=== PATIENT | female | born 1965 | race Caucasian/White ===

== ENCOUNTER 2019-12-15 20:41 | Emergency (ER) | payer BC ==
[~2019-12-15] VITALS: Ht 149.9 cm; Wt 65.3 kg
[~2019-12-15 20:41] MED LIST: ALPR1TAB2 PO; ALPR1TAB6 PO; AMLO10TA4 PO; ASPI-484 PO; ATOR40TA PO; BISO5TAB8 PO; CLOP75TA52 PO; DOCU-123 PO; DULO20CA18 PO; ESCI10TA10 PO; ESCI20TA PO; GABA100C7 PO; HYDR-3468 PO; LORA1TAB PO; METO-236 PO; METO-237 PO; PANT40TA5 PO; PRAS10TA4 PO; RANO500T2 PO; ROSU10TA2 PO; ROSU40TA PO; TICA90TA PO; ZOLP10TA PO; ZOLP12.52 PO; ZOLP12.54 PO
[2019-12-15 20:49] VITALS: BP 109/83
--- NOTE | 2019-12-15 20:49 | NUR ---
ARRIVAL PATIENT PRESENTS WITH COMPLAINTS OF N/V/D, FEVER/CHILLS THAT STARTED TODAY. PATIENT REPORTS THAT OTHER FAMILY MEMBERS HAVE HAD SAME TODAY. AFEBRILE. HR 130. FRANCO, NOTIFIED.
[2019-12-15] MEDS ORDERED: NS 1000ML 1,000 ML STA (21:09)
[2019-12-15] MEDS ORDERED: ZOFRAN IV STA (21:09)
--- NOTE | 2019-12-15 21:11 | ER.PDOC ---
General Chief Complaint: Requesting Medical Care Stated Complaint: FLU SYMPTOMS Time seen by MD: 21:04 Source: patient Exam Limitations: no limitations History of Present Illness Initial Comments pt c/o n/v/d x today; + chills/body aches; denies cough or URI sx Timing/Duration: gradual, this morning Severity: moderate Allergies: Coded Allergies: No Known Allergies (Unverified , 11/13/18) Home Meds Active Scripts Ticagrelor (BRILINTA) 90 Mg Tablet, 90 MG PO BID for 365 Days, #180 TABLET 12 Refills Prov:SHAYY GONZALEZ MD 04/26/18 Reported Medications Zolpidem Tartrate (AMBIEN CR) 12.5 Mg Tab.mphase, 1 TAB PO HS, #30 TAB 1 Refill 12/10/19 Gabapentin (GABAPENTIN) 100 Mg Capsule, 2 CAP PO HS, #90 CAP 2 Refills 12/10/19 Escitalopram Oxalate (ESCITALOPRAM OXALATE) 20 Mg Tablet, 1 TAB PO DAILY, #30 TAB 5 Refills 12/10/19 Alprazolam (ALPRAZOLAM) 1 Mg Tablet, 1 TAB PO BID PRN for ANXIETY, #60 TAB 12/10/19 Rosuvastatin 40MG (CRESTOR 40MG) 40 Mg Tablet, 1 TAB PO HS, #30 TAB 5 Refills 11/13/18 Metoprolol Succinate (METOPROLOL SUCCINATE) 50 Mg Tab.er.24h, 50 MG PO ACL 12/29/16 Aspirin (ASPIR 81) 81 Mg Tablet.dr, 1 TAB PO DAILY, #30 TAB 5 Refills 11/18/16 Pantoprazole Sodium (PANTOPRAZOLE SODIUM) 40 Mg Tablet.dr, 1 TAB PO DAILY, #30 TAB 3 Refills 11/18/16 Discontinued Reported Medications Lorazepam (LORAZEPAM) 1 Mg Tablet, 1 TAB PO BID PRN for ANXIETY, #60 TAB 11/13/18 Escitalopram Oxalate (LEXAPRO) 10 Mg Tablet, 1 TAB PO DAILY, #90 TAB 3 Refills 12/13/17 Constitutional: malaise, other (body aches) EENTM: no symptoms reported Respiratory: no symptoms reported Cardiovascular: no symptoms reported Gastrointestinal: diarrhea, nausea, vomiting Genitourinary: no symptoms reported Musculoskeletal: see HPI (body aches) Skin: no symptoms reported Psychiatric/Neurological: no symptoms reported Past Medical History Medical History: other (bowel obstruction x 2, relieved with NGT) Surgical History: appendectomy, cholecystectomy, hysterectomy, stent Social History Drug Use: none Physical Exam General Appearance: alert, mild distress (appears acutely uncomfortable) Respiratory: no resp.distress, breath sounds nml Abdomen: non-tender, other (hypoactive BS x 4) CVS: heart sounds nml, tachycardia Skin: warm/dry Extremities: non-tender, no pedal edema NEURO/PSYCH: oriented x 3, motor nml, mood/affect nml Results/Orders Results/Orders Orders - NEGAR FRANCO DO Influenza A&B (12/15/19 20:53) Strep Screen (12/15/19 20:53) Cbc With Auto Diff (12/15/19 21:09) Comprehensive Metabolic Panel (12/15/19 21:) Amylase (12/15/19 21:) Lipase (12/15/19 21:09) PT (12/15/19 21:09) Ct Abd/Pel With Iv Contrast (12/15/19 21:) Partial Thromboplastin Time. (12/15/19 21:09) Urinalysis (12/15/19 21:09) Saline Lock (12/15/19 21:09) 0.9 % Sodium Chloride (Ns 1000ml) (12/15/19 21:09) Ondansetron Hcl/Pf (Zofran) (12/15/19 21:09) Npo Now (12/15/19 21:09) Vital Signs Date Time Temp Pulse Resp B/P (MAP) Pulse Ox O2 Delivery O2 Flow Rate FiO2 12/15/19 20:49 97.7 130 18 12/15/19 20:49 97.7 130 18 98 12/15/19 20:49 97.7 130 18 109/83 (92) 98 Room Air Administered Medications Medications (Trade) Dose Ordered Sig/Asiya Route PRN Reason Start Time Stop Time Status Last Admin Dose Admin Ondansetron HCl (Zofran) 4 mg STAT STAT IV 12/15/19 21:09 12/15/19 21:10 UNV 12/15/19 21:30 4 MG Sodium Chloride 1,000 ml @ 0 mls/hr Q0M STAT IV 12/15/19 21:09 2/15/20 21:10 UNV 12/15/19 21:30 1,000 MLS/HR Laboratory Tests Test 12/15/19 21:26 12/15/19 21:45 White Blood Count 8.1 10^3/uL (4.5-11.0) Red Blood Count 4.83 10^6/uL (4.00-5.20) Hemoglobin 15.2 g/dL (12.0-15.0) H Hematocrit 44.6 % (36.0-46.0) Mean Corpuscular Volume 92.3 fL (78-100) Mean Corpuscular Hemoglobin 31.5 pg (26-34) Mean Corpuscular Hemoglobin Concent 34.1 g/dL (33-36.5) Red Cell Distribution Width 12.4 % (11.5-14.5) Platelet Count 258 10^3/uL (150-400) Mean Platelet Volume 9.7 fL (7.8-11.0) Neutrophils (%) (Auto) 87.6 % (41.0-85.0) H Lymphocytes (%) (Auto) 7.6 % (24.0-44.0) L Monocytes (%) (Auto) 4.3 % (5.0-12.0) L Neutrophils # (Auto) 7.1 10^3/uL (1.8-7.7) Lymphocytes # (Auto) 0.62 10^3/uL1 (1.0-4.8) L Monocytes # (Auto) 0.4 10^3/uL (0.3-0.8) Absolute Immature Granulocyte (auto 0.02 10^3 u/L (0-2) Absolute Eosinophils (auto) 0.0 10^3/uL (0.0-0.2) Immature Granulocytes % 0.20 % (0.00-0.50) Eosinophils % 0.2 % (0.0-5.0) Basophils % 0.1 % (0.0-0.2) Basophils # 0.0 10^3/uL (0.0-0.1) Prothrombin Time 9.9 SEC (9.4-11.5) Prothrombin Time INR (Non-Therap) 1.0 Activated Partial Thromboplast Time 20.9 SEC (24.67-30.72) Sodium Level 140 mmol/L (132-145) Potassium Level 4.0 mmol/L (3.6-5.2) Chloride Level 103.0 mmol/L (96-109) Carbon Dioxide Level 24.3 mmol/L (20.0-32) Anion Gap 16.7 Blood Urea Nitrogen 17 mg/dL (7-18) Creatinine 0.99 mg/dL (0.59-1.40) Estimated GFR () 70.2 (>/=60) Est GFR (CKD-EPI)(Non-Afr Greek) 58.0 (>/=60) BUN/Creatinine Ratio 17.0 Glucose Level 112 mg/dL (70-110) H Calcium Level 9.2 mg/dL (8.4-10.5) Total Bilirubin 1.1 mg/dL (0.2-1.0) H Aspartate Amino Transferase (AST) 22 U/L (0-35) Alanine Aminotransferase (ALT) 31 U/L (12-78) Alkaline Phosphatase 67 U/L (50-136) Total Protein 8.6 g/dL (6.4-8.2) H Albumin 4.1 g/dL (3.4-5.0) Globulin 4.5 Amylase Level 60 U/L (25-115) Lipase 59 U/L (114-286) L Influenza Type A Antigen NEGATIVE (NEG) Influenza B Immunofluorescence NEGATIVE (NEG) Group A Streptococcus Screen NEGATIVE (NEGATIVE) Progress Progress strep negative, flu negative zofran controlled nausea well here IVNS bolus 1000 cc administered with improvement in tachycardia EKG/XRAY/CT/US CT Comments: no obstruction Departure Time of Disposition: 22:32 Disposition: 01 HOME, SELF-CARE Impression: Primary Impression: Vomiting and diarrhea Condition: Improved Patient Instructions: Nausea and Vomiting Referrals: MONE DOMINGUEZ MD (PCP) PRIMARY CARE PROVIDER Additional Instructions: Clear liquids (no fruit juice) x 24 hours, gradually advancing diet after that as tolerated. Alternate Tylenol and Motrin every 4 hours as needed for fever. Take nausea and diarrhea medications as prescribed when needed. Return to ER if symptoms persist or worsen or for any other emergent concerns. Follow up with Dr. Gonsalez next week. Duration or Time Spent with Pa: 15 min NEGAR FRANCO DO Dec 15, 2019 21:11
[2019-12-15] MEDS ORDERED: ZOFRAN ONE (21:26)
[2019-12-15] MEDS ORDERED: NS 1000ML 1,000 ML ONE (21:26)
[2019-12-15 21:30] LABS: BASOPHIL % 0.1 % (0.0-0.2); EOSINOPHIL % 0.2 % (0.0-5.0); LYMPHOCYTES # 0.62 10^3/uL1 (1.0-4.8); LYMPHOCYTES % 7.6 % (24.0-44.0); MEAN CORP HGB 31.5 pg (26-34); MONOCYTES # 0.4 10^3/uL (0.3-0.8); MONOCYTES % 4.3 % (5.0-12.0); NEUTROPHIL # 7.1 10^3/uL (1.8-7.7); NEUTROPHILS % 87.6 % (41.0-85.0); PLATELET COUNT 258 10^3/uL (150-400); RED CELL DISTRIBUTION WIDTH 12.4 % (11.5-14.5)
[2019-12-15 21:47] LABS: CALCIUM 9.2 mg/dL (8.4-10.5); CARBON DIOXIDE 24.3 mmol/L (20.0-32)
[2019-12-15 21:50] VITALS: BP 108/71
--- NOTE | 2019-12-15 22:08 | DIREP ---
PROCEDURE:CT ABDOMEN/PELVIS W/ CONTRAST COMPARISON:[facility], CT, CT ABD/PELVIS W/ CONTRAST, 12/30/2016, 02:12 PM. INDICATIONS:n/v hx ileus/obstruction, ABD PAIN TECHNIQUE:Axial images were created through the abdomen and pelvis with non-ionic intravenous contrast material. No oral contrast was administered. Sagittal and coronal reconstructions were performed from source images. FINDINGS: LUNG BASES:Normal. No visible pulmonary or pleural disease. LIVER:Normal. No significant liver lesions are identified. BILIARY:The gallbladder is absent. PANCREAS:Normal. No lesion, fluid collection, ductal dilatation, or atrophy. SPLEEN:Normal. No enlargement or focal lesion. ADRENALS:Normal. No mass or enlargement. URINARY TRACT:2 small left renal cyst are again seen. The right kidney is normal. AORTA/VASCULAR:Normal. No aneurysm. RETROPERITONEUM:Normal. No mass or adenopathy. BOWEL/MESENTERY:Normal. There is no intestinal obstruction, free fluid, free air or mesenteric inflammatory changes. The appendix is not visualized. ABDOMINAL WALL:Normal. No mass or hernia. PELVIC ORGANS:The uterus is absent. BONES:Normal for age. No bony lesion or acute fracture. OTHER:Negative. CONCLUSION:Postsurgical changes are seen cholecystectomy and hysterectomy. No acute abnormalities are seen in the abdomen and pelvis. No evidence of bowel obstruction is demonstrated. Dictated by: Mario Santoyo M.D. on 12/15/2019 at 10:00 PM
--- NOTE | 2019-12-15 22:50 | NUR ---
IV DC'D TIP INTACT, NO BLEEDING
[2019-12-15 22:53] VITALS: BP 121/85
== END 2019-12-15 22:53 | disposition home or self-care (01) ==
LOC: ER 20:41
DX: K56.609 Unspecified intestinal obstruction, unspecified as to partial versus complete obstruction (principal); R11.2 Nausea with vomiting, unspecified; R79.1 Abnormal coagulation profile; Z79.82 Long term (current) use of aspirin; Z79.899 Other long term (current) drug therapy; Z90.49 Acquired absence of other specified parts of digestive tract; Z90.710 Acquired absence of both cervix and uterus
CPT/HCPCS: 36415; 74177; 80053; 82150; 83690; 85025; 85610; 85730; 87070; 87804 ×2; 87880; 96361; 96374; 99285; J2405; J7030; Q9965

== ENCOUNTER → 2020-02-28 | Outpatient (CLI) | payer BC ==
[2020-02-28] MEDS: LEXISCAN IV STA (10:07)
--- NOTE | 2020-02-28 22:44 | STRESS ---
DATE OF SERVICE: 02/28/2020 CARDIAC STRESS TEST INDICATION: Chest pain. Baseline EKG shows normal sinus rhythm, normal ECG. Stress EKG revealed sinus tachycardia, unchanged from baseline. At recovery, EKG shows normal sinus rhythm, unchanged from baseline. Baseline blood pressure is noted to be 139/96 and remained the same during stress. At recovery, the blood pressure was 122/88. Baseline heart rate was noted to be 75 beats per minute at rest. During stress, the heart rate randy to 118 beats per minute. At recovery, the heart rate was noted to be 126 beats per minute. Blood pressure and heart rate were appropriate for stress. There were no significant symptoms noted during stress. There were no arrhythmias noted during stress. EKG portion of stress test is negative for myocardial ischemia. Nuclear images reveal homogeneous tracer distribution across all wall segments of the left ventricle, seen in both rest and stress images. There is no evidence of myocardial ischemia or infarction. Left ventricular ejection fraction is noted to be 76%. EDV is 22 mL. ESV is 5 mL. The left ventricle is normal in size. Gated motion images show normal wall motion across all segments of the left ventricle. TID is noted to be 1.57. There is no evidence of diaphragmatic attenuation artifact. IMPRESSION: Normal myocardial perfusion imaging with no evidence of myocardial ischemia or infarction. Left ventricular ejection fraction is noted to be 76%. This is a negative study. MADHU BLAKE D.O. DR: SHREYA/jamila JOB# [id number]
== END | disposition home or self-care (01) ==
LOC: RAD 08:35
PROVIDERS: ATTEND Internal Medicine Interventional Cardiology
DX: I25.110 Atherosclerotic heart disease of native coronary artery with unstable angina pectoris (principal)
CPT/HCPCS: 78452; 93017; 93306; A9500; J2785

== ENCOUNTER → 2020-03-13 | Day surgery (SDC) | payer BC ==
[2020-03-12 13:45] VITALS: BP 119/81
--- NOTE | 2020-03-12 14:06 | PCM.EKG ---
[facility] Test Date: 2020-03-12 Test Time: 13:56:43 Pat Name: JOHN MCHUGH Department: Room: Gender: F Local Superintendent: SUNG : 1965 Requested By: MADHU BLAKE Order Number: [id number] Reading MD: Measurements Intervals [place] Rate: 65 P: 68 NC: 160 QRS: 82 QRSD: 74 T: 67 QT: 422 QTc: 438 Interpretive Statements Normal sinus rhythm Normal ECG Compared to ECG 10/07/2018 14:21:45 No significant changes Please click the below link to view image of tracing.
[2020-03-12 14:16] LABS: BASOPHIL % 0.1 % (0.0-0.2); EOSINOPHIL # 0.1 10^3/uL (0.0-0.2); EOSINOPHIL % 0.7 % (0.0-5.0); LYMPHOCYTES # 3.24 10^3/uL1 (1.0-4.8); LYMPHOCYTES % 46.6 % (24.0-44.0); MEAN CORP HGB 31.5 pg (26-34); MONOCYTES # 0.7 10^3/uL (0.3-0.8); MONOCYTES % 9.6 % (5.0-12.0); NEUTROPHILS % 42.9 % (41.0-85.0); PLATELET COUNT 306 10^3/uL (150-400); RED CELL DISTRIBUTION WIDTH 13.1 % (11.5-14.5)
[2020-03-12 14:34] LABS: CALCIUM 9.1 mg/dL (8.4-10.5)
[2020-03-13] VITALS (13 sets, daily range): BP systolic 100–124; BP diastolic 64–87
[~2020-03-13] VITALS: Ht 149.9 cm; Wt 64.9 kg
[~2020-03-13] MED LIST changes: +ADENOSINE IV ONE; +HEPARIN ONE; +SILVER SULFADIAZINE TP SCH; +SUBLIMAZE ONE; +VERSED ONE; +XYLOCAINE ONE
--- NOTE | 2020-03-13 19:12 | [facility] ---
DATE OF SERVICE: 03/13/2020 CARDIAC CATHETERIZATION REPORT INDICATION FOR PROCEDURE: Unstable angina. HISTORY OF PRESENT ILLNESS: This is a 54-year-old female who was initially evaluated in the outpatient setting with symptoms of progressively worsening unstable angina. She was then set up for left heart catheterization. Informed consents were obtained and the patient was taken to the cardiac catheterization suite. PROCEDURES PERFORMED: 1. Coronary invasive testing with fractional flow reserve (FFR) of the right coronary artery. 2. Selective coronary angiography. 3. Left ventriculography. 4. Hemostasis established using a 6-Bermudian MynxGrip. PROCEDURE DETAILS: Access was obtained using a 4-Bermudian micropuncture kit to cannulate the right common femoral artery. The 4-Bermudian sheath was then upsized to a 6-Bermudian regular short sheath. Diagnostic angiography was then carried out using the Elenita left catheter to engage the left main. The left main was noted to be angiographically normal. It bifurcates into left anterior descending artery and the left circumflex artery. The left anterior descending artery is noted to have widely patent stents in the proximal to mid segments. It runs in the interventricular groove to the apex to form a type 2 LAD. It tapers into small caliber vessel, mid to distally. The left circumflex artery is noted to be nondominant with mild luminal irregularities. It gives off 2 obtuse marginal branches that are noted to have mild luminal irregularities. The first obtuse marginal branch is a small caliber vessel. The Elenita left catheter was then exchanged for a Elenita right catheter, which was used to cross the aortic valve into the left ventricle. Left ventriculography was performed. LVEF was noted to be 65%. LVEDP was noted to be 7. Upon pullback of the catheter, there was no gradient across the aortic valve. The Leenita right catheter was then used to engage the RCA. RCA angiography revealed a 65-70% focal mid RCA lesion distal to the stents in the RCA. Upon contrast angiography of the RCA, the patient went into a run of ventricular tachycardia that was converted to normal sinus rhythm after 1 defibrillator shock. At this point, I elected to perform coronary invasive testing of the RCA to further ascertain the severity of the lesion in the mid RCA. The proximal RCA was noted to have widely patent stents. The RCA bifurcates distally to an RPL and RPDA branch, both noted to be small caliber and of mild luminal irregularities. A JR guide was then used to engage the RCA. Coronary invasive testing using an FFR wire was then advanced into the RCA to cross the lesion in the mid RCA. Adenosine was run for 2 minutes 30 seconds with FFR noted to be 0.90. This is noted to be insignificant. The FFR wire was then removed and the JR guide was subsequently taken out. Hemostasis was then established using a 6-Bermudian MynxGrip. The patient left the director of cath lab in stable condition. There were no complications. IMPRESSION: 1. Coronary invasive testing with an FFR wire of the right coronary artery noted to be insignificant. 2. Selective coronary angiography. 3. A 65% lesion in the mid RCA. 4. Left ventriculography. 5. LVEDP of 7. 6. LVEF of 65%. 7. Hemostasis established using a 6-Bermudian MynxGrip. RECOMMENDATIONS: No coronary intervention is necessary at this time. The patient is noted to have a focal moderate lesion in the mid RCA. This will be treated with aggressive medication management. I would go ahead and start on Lipitor 40 mg p.o. at bedtime. Fasting lipid panel will also be obtained in the outpatient setting upon followup. Lifestyle modification factors including diet control and weight loss have been strongly advised. Aggressive medication management is recommended at this time. MADHU BLAKE D.O. ISABEL CASH/jamila JOB# [id number]
== END | disposition home or self-care (01) | DRG 303 ==
LOC: SDC 07:55
PROVIDERS: ATTEND Internal Medicine Interventional Cardiology
DX: I25.110 Atherosclerotic heart disease of native coronary artery with unstable angina pectoris (principal); I11.9 Hypertensive heart disease without heart failure; F41.9 Anxiety disorder, unspecified; E78.5 Hyperlipidemia, unspecified; I25.2 Old myocardial infarction; Z79.01 Long term (current) use of anticoagulants; Z87.891 Personal history of nicotine dependence; Z98.890 Other specified postprocedural states; Z79.899 Other long term (current) drug therapy; Z79.82 Long term (current) use of aspirin; Z83.3 Family history of diabetes mellitus; Z82.49 Family history of ischemic heart disease and other diseases of the circulatory system
CPT/HCPCS: 36415; 80053; 85025; 85610; 85730; 93005; 93458; 93571; 99152; 99153 ×2; C1769; C1894 ×4; J0153; J1644 ×2; J2250 ×2; J3010 ×2; Q9967; C1887

== ENCOUNTER 2020-06-04 17:23 | Inpatient (IN) | payer BC ==
[~2020-06-04] VITALS: Ht 149.9 cm; Wt 65.3 kg
[~2020-06-04 17:23] MED LIST changes: -ADENOSINE IV ONE; -ASPI-484 PO; +ASPI-485 PO; -HEPARIN ONE; -PANT40TA5 PO; +PANT40TA6 PO; -SILVER SULFADIAZINE TP SCH; -SUBLIMAZE ONE; -VERSED ONE; -XYLOCAINE ONE; -ZOLP12.54 PO; +ZOLP12.56 PO
[2020-06-04 17:46] VITALS: BP 163/91
--- NOTE | 2020-06-04 18:07 | PCM.EKG ---
[facility] Test Date: 2020-06-04 Test Time: 17:52:59 Pat Name: JOHN MCHUGH Department: Room: 331 Gender: F Program Developer: RYLIE : 1965 Requested By: KACI FU Order Number: [id number] Reading MD: Kaci Fu Measurements Intervals [place] Rate: 79 P: 69 W[place]: 157 QRS: 79 QRSD: 85 T: 56 QT: 383 QTc: 440 Interpretive Statements Sinus rhythm Compared to ECG 03/12/2020 13:56:43 No significant changes Electronically Signed On 07-03-2020 18:26:29 CDT by Kaci Fu Please click the below link to view image of tracing.
--- NOTE | 2020-06-04 18:22 | DIREP ---
PROCEDURE:CHEST 1 VIEW COMPARISON:[facility], CR, XRAY CHEST SINGLE VW, 10/07/2018, 02:03 PM. INDICATIONS:chest pain FINDINGS: LUNGS/PLEURA:No significant pulmonary parenchymal abnormalities or pleural effusion. CARDIAC:Normal cardiac silhouette and normal pulmonary vascularity. MEDIASTINUM:Normal. BONES:Normal. OTHER:No additional findings. CONCLUSION:No acute cardiopulmonary process or significant change. Dictated by: Alexa Alonzo MD on 06/04/2020 at 06:20 PM
--- NOTE | 2020-06-04 18:24 | ER.PDOC ---
General Chief Complaint: chest pain Stated Complaint: GENERAL Time seen by MD: 17:45 Source: patient Exam Limitations: no limitations History of Present Illness Initial Comments scheduled for heart cath tomorrow Timing/Duration: getting worse Severity/Quality: moderate, dull, pressure Radiation: no radiation Activities at Onset: activity/exertion, emotional stress, rest Prior CP/Workup: Cardiac Cath, Heart Attack Modifying Factors: breathing, rest Nitro Today/Relief: 0.4 mg x 1, Mild Relief Aspirin Today: 81 mg x 1 Associated Symptoms: denies symptoms Prior symptoms/Treatment: Similar symptoms previous Allergies: Coded Allergies: No Known Allergies (Unverified , 03/12/20) Home Meds Active Scripts Atorvastatin 40MG (LIPITOR 40MG) 40 Mg Tablet, 1 TAB PO HS, #30 TAB 1 Refill Prov:MADHU BLAKE DO 03/13/20 Ticagrelor (BRILINTA) 90 Mg Tablet, 90 MG PO BID for 365 Days, #180 TABLET 12 Refills Prov:SHAYY GONZALEZ MD 04/26/18 Reported Medications Zolpidem Tartrate (AMBIEN CR) 12.5 Mg Tab.mphase, 1 TAB PO HS, #30 TAB 1 Refill 12/10/19 Gabapentin (GABAPENTIN) 100 Mg Capsule, 2 CAP PO HS, #90 CAP 2 Refills 12/10/19 Escitalopram Oxalate (ESCITALOPRAM OXALATE) 20 Mg Tablet, 1 TAB PO DAILY, #30 TAB 5 Refills 12/10/19 Alprazolam (ALPRAZOLAM) 1 Mg Tablet, 1 TAB PO BID PRN for ANXIETY, #60 TAB 12/10/19 Metoprolol Succinate (METOPROLOL SUCCINATE) 50 Mg Tab.er.24h, 50 MG PO ACL 12/29/16 Aspirin (ASPIR 81) 81 Mg Tablet.dr, 1 TAB PO DAILY, #30 TAB 5 Refills 11/18/16 Pantoprazole Sodium (PANTOPRAZOLE SODIUM) 40 Mg Tablet.dr, 1 TAB PO DAILY, #30 TAB 3 Refills 11/18/16 Past Medical History Medical History: angina, coronary artery disease, heart attack, other Surgical History: appendectomy, cholecystectomy, hysterectomy, stent Family History Significant Family History: heart disease Social History Smoking: non-smoker Alcohol Use: none Drug Use: none Cardiovascular: see HPI Psychiatric/Neurological: anxiety All Other Systems: Reviewed and Negative Physical Exam General Appearance: Anxious, Mild Distress HEENT: PERRL/EOMI, Normal ENT Inspection, TMs Normal, Pharynx Normal Neck: Non-Tender, Full Range of Motion, Supple, Normal Inspection Respiratory: chest non-tender, lungs clear, normal breath sounds, no respiratory distress, no accessory muscle use Cardiovascular: Normal Peripheral Pulses, Regular Rate, Rhythm, No Edema, No Gallop, No JVD, No Murmur Gastrointestinal: Normal Bowel Sounds, No Organomegaly, No Pulsatile Mass, Non Tender, Soft Extremities: Normal Range of Motion, Non-Tender, Normal Inspection, No Pedal Edema, No Calf Tenderness, Normal Capillary Refill 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 (06/04/20 18:05) Xr Chest 1v (06/04/20 18:05) Nitroglycerin (Nitrostat) (06/04/20 18:30) Saline Lock (06/04/20 18:05) EKG/XRAY/CT/US EKG: NSR, rhythm, no ST T wave changes Consult/PCP Time Consult/PCP Called: 19:19 (Diiscussed with Dr Velazquez OBS to [facility]) Departure Time of Disposition: 23:15 Disposition: 09 ADMITTED INPATIENT Impression: Primary Impression: CAD (coronary artery disease) Additional Impressions: Chest pain Unstable angina Condition: Stable Referrals: MONE DOMINGUEZ MD (PCP) PRIMARY CARE PROVIDER Duration or Time Spent with Pa: see above Problem Qualifiers KACI FU Jun 04, 2020 18:24
[2020-06-04] MEDS ORDERED: NITROSTAT SL PRN (18:30)
[2020-06-04 18:49] LABS: BASOPHIL % 0.2 % (0.0-0.2); EOSINOPHIL % 0.1 % (0.0-5.0); LYMPHOCYTES # 2.61 10^3/uL1 (1.0-4.8); LYMPHOCYTES % 31.4 % (24.0-44.0); MEAN CORP HGB 31.4 pg (26-34); MONOCYTES # 0.7 10^3/uL (0.3-0.8); MONOCYTES % 8.2 % (5.0-12.0); PLATELET COUNT 303 10^3/uL (150-400); RED CELL DISTRIBUTION WIDTH 12.3 % (11.5-14.5)
[2020-06-04 19:06] LABS: ALANINE AMINOTRANSFERASE(ML) 34 U/L (12-78); ALKALINE PHOSPHATASE 83 U/L (50-136); ASPARTATE AMINO TRANSFERASE 24 U/L (0-35); CALCIUM 9.6 mg/dL (8.4-10.5); CARBON DIOXIDE 25.7 mmol/L (20.0-32); GLUCOSE 102 mg/dL (70-110)
--- NOTE | 2020-06-04 19:44 | HPH ---
ADMIT DATE: 06/04/2020 CHIEF COMPLAINT: Unstable angina. HISTORY OF PRESENT ILLNESS: This is a 54-year-old female who is very well known to my service, who is presenting to the Emergency Department with symptoms of progressively worsening unstable angina. She was recently evaluated in the outpatient setting and underwent left heart catheterization a few months ago and was noted to have a 65% mid RCA lesion, which was insignificant on FFR. Since heart catheterization, she has been experiencing progressively worsening chest discomfort. She describes a pressure-like sensation in the substernal region with radiation to the left jaw and upper extremity. She has been taking sublingual nitroglycerin on a daily basis for relief of chest pain. In view of this, she was instructed to report to the Emergency Department for planned left heart catheterization with intervention to the RCA in the morning. PAST MEDICAL HISTORY: Significant for: 1. Coronary artery disease, status post PCI x 5 stents done in the past. 2. Hyperlipidemia. 3. Hypertension. 4. Old OR. 5. Family history of premature CAD. PAST SURGICAL HISTORY: 1. Appendectomy. 2. LONNIE/BSO. 3. Multiple cardiac catheterizations x 5 stents in the past. FAMILY HISTORY: Known family history of premature CAD with father at age 58 with an OR. Denies sudden cardiac deaths. SOCIAL HISTORY: Denies tobacco use, denies illicit drug use, denies alcohol use. MEDICATIONS: She takes at home include aspirin 81 mg daily, metoprolol succinate 50 mg daily, Brilinta 90 mg p.o. b.i.d., Crestor 40 mg daily, Lexapro 20 mg daily, Protonix 40 mg daily, gabapentin 100 mg 2 tabs b.i.d., sublingual nitroglycerin, Ambien 12.5 mg at bedtime p.r.n., Xanax 1 mg b.i.d. p.r.n. ALLERGIES: She has no known drug allergies. REVIEW OF SYSTEMS: As per HPI and as per previous systems, all systems reviewed and negative for interval change. PHYSICAL EXAMINATION: VITAL SIGNS: Respiratory rate is 17, blood pressure is 163/91, heart rate is 88, temperature is 37 degrees Celsius, oxygen saturation is 97% on room air. GENERAL: She is in no apparent distress, alert and oriented x 3. HEENT: Normocephalic, atraumatic. Extraocular muscles intact. Pupils are equally round and reactive to light and accommodation. No evidence of thyromegaly. HEART: S1, S2. No gallops, murmurs, rubs, or clicks. LUNGS: Clear to auscultation bilaterally. No wheezing, rhonchi or rales. ABDOMEN: Soft, nontender, nondistended. Positive bowel sounds in all 4 quadrants. EXTREMITIES: No cyanosis, no clubbing, no edema, +2 pedal pulses palpable bilaterally. NEUROLOGIC: No neurological deficits. Sensation is intact. IMPRESSION: 1. Progressively worsening unstable angina. 2. Known history of coronary artery disease/myocardial infarction with multiple PCIs in the past x 5 stents. 3. Recent heart catheterization with a 65% mid right coronary artery lesion. 4. Hypertension. 5. Hyperlipidemia. 6. Left ventricular ejection fraction of 65-70% on 2D echo done 01/2020. 7. Family history of premature coronary artery disease. RECOMMENDATIONS: This is a 54-year-old female who is presenting today with symptoms of progressively worsening unstable angina. She has a known history of 65% lesion in the mid RCA from recent heart catheterization. She continues to experience symptoms of substernal chest tightness with radiation to the left jaw and left upper extremity, which appears to be relieved with nitroglycerin. She has been taking nitroglycerin daily for the last few days. In view of this, she will be set up for left heart catheterization in the morning for possible intervention to the RCA lesion. The risks versus benefits of the procedure have been explained to her in great detail. She verbalized understanding and is agreeable with the plan of care. Informed consents have been obtained. Further recommendations will be made based on the overall clinical course and the findings from left heart catheterization. MADHU BLAKE D.O. DR: SHREYA/jamila JOB# [id number]
[2020-06-04 20:37] VITALS: BP 120/86
[2020-06-04] MEDS ORDERED: ISOS30TA4 PO (23:40)
[2020-06-04 23:58] VITALS: BP 134/95
[2020-06-05 04:15] VITALS: BP 102/68
[2020-06-05] MEDS ORDERED: HEPARIN ONE (07:17)
[2020-06-05] MEDS ORDERED: SUBLIMAZE ONE ×2 (07:18→14:32)
[2020-06-05] MEDS ORDERED: VERSED ONE ×2 (07:18→14:32)
[2020-06-05] MEDS ORDERED: XYLOCAINE ONE (07:18)
[2020-06-05 08:21] VITALS: BP 98/65
[2020-06-05 13:01] VITALS: BP 132/88
--- NOTE | 2020-06-05 13:58 | NUR ---
DISCHARGE PLAN CM VISITED WITH PATIENT REGARDING D/C PLAN AND NEEDS. PATIENT LIVES AT HOME WITH HER SPOUSE. SHE IS VERY IND OF ADLS. 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 HER PCP IS DR DOMINGUEZ. SHE DOES HAVE A CPAP THAT IS SERVICED BY [facility]. SHE DENIES THE NEED FOR ADDITIONAL SERVICES AND RESOURCES. DISCHARGE PLAN IS FOR PATIENT TO D/C BACK HOME TO ROUTINE CARE WITH HER SPOUSE.
--- NOTE | 2020-06-05 14:19 | NUR ---
Pt off unit at this time for procedure.
[2020-06-05] MEDS ORDERED: NS 1000ML 1,000 ML ONE (14:42)
[2020-06-05] MEDS ORDERED: MORPHINE SULFATE ONE (14:53)
[2020-06-05] MEDS ORDERED: ATIVAN ONE (15:00)
[2020-06-05] MEDS ORDERED: ASPIRIN ONE (15:22)
[2020-06-05] MEDS ORDERED: BRILINTA ONE (15:22)
--- NOTE | 2020-06-05 16:10 | NUR ---
Pt back on unit, received report from Mat Rm RN
[2020-06-05 16:29] VITALS: BP 138/87
[2020-06-05 19:20] VITALS: BP 107/67
--- NOTE | 2020-06-05 20:05 | PRM.CONS ---
Consultation Reason for Consult: Reason for Consultation: medical management History of Present Illness Current and Past HX: (1) Hyperlipidemia Status: Chronic ICD Code: E78.5 - Hyperlipidemia, unspecified SNOMED: 51553790 (2) CAD (coronary artery disease) Status: Chronic ICD Code: I25.10 - Atherosclerotic heart disease of [place] coronary artery without angina pectoris SNOMED: 72667854 (3) Unstable angina Status: Acute ICD Code: I20.0 - Unstable angina SNOMED: 9856384 Social and Family History: (1) Family history of heart disease ICD Code: Z82.49 - Family history of ischemic heart disease and other diseases of the circulatory system SNOMED: 046751350 (2) Hx of appendectomy ICD Code: Z90.49 - Acquired absence of other specified parts of digestive tract SNOMED: 008816155 (3) Hx of hysterectomy ICD Code: Z90.710 - Acquired absence of both cervix and uterus SNOMED: 356778655, 067458933 (4) History of percutaneous coronary intervention ICD Code: Z98.61 - Coronary angioplasty status SNOMED: 659565175 History of Patient Comments Ms Ness is a very pleasant 54 y/o female with hx of HLD, HTN, CAD with hx of PCI x 5 stents who presented to [facility] ED with chest pain. He is known to Dr. Patel and was admitted by him. She underwent LHC and stent placement. Chest pain resolved while here. No complications with case. Consulted for medical mgmt. Review of Systems Constitutional: No: Fever, Chills, Sweats, Weakness, Malaise Eyes: Redness; No: Vision change, Conjunctivae inflammation ENT: No: Nose congestion, Throat pain Respiratory: No: Cough, Dry, Shortness of breath, SOB with excertion, Wheezing, Hemoptysis, Pleuritic Pain, Sputum Cardiovascular: Chest Pain; No: Palpitations, Orthopnea, Paroxysmal Noc. Dyspnea, Edema, Lt Headedness Gastrointestinal: No: Nausea, Vomiting, Abdominal Pain, Diarrhea, Constipation, Melena, Hematochezia, Other Genitourinary: No Dysuria, No Frequency, No Hematuria; Other Musculoskeletal: No: back pain, leg pain Skin: No: Rash, Lesions, Jaundice, Bruising Neurological: No: Weakness, Numbness, Incoordination, Change in speech, Confusion, Seizures Allergies: Coded Allergies: No Known Allergies (Unverified , 03/12/20) Scheduled Aspirin (Aspir 81), 1 TAB PO DAILY, (Reported) Atorvastatin 40MG (Lipitor 40MG), 1 TAB PO HS Escitalopram Oxalate (Escitalopram Oxalate), 1 TAB PO DAILY, (Reported) Gabapentin (Gabapentin), 2 CAP PO HS, (Reported) Isosorbide Mononitrate (Isosorbide Mononitrate Er), 1 TAB PO DAILY, (Reported) Metoprolol Succinate (Metoprolol Succinate), 50 MG PO ACL, (Reported) Pantoprazole Sodium (Pantoprazole Sodium), 1 TAB PO DAILY, (Reported) Ticagrelor (Brilinta), 90 MG PO BID Zolpidem Tartrate (Ambien Cr), 1 TAB PO HS, (Reported) Scheduled PRN Alprazolam (Alprazolam), 1 TAB PO BID PRN for ANXIETY, (Reported) VTE VTE Risk Total Score: 1 VTE Risk Score VTE Risk: Score 0-1 = Low Risk (Aggressive mobilization; early ambulation; no VTE prophylaxis required) Score 2: Moderate Risk (Intermittent/Pneumatic Compression Device OR Lovenox/Heparin/Coumadin) Score 3-4: High Risk (Intermittent/Pneumatic Compression Device AND Lovenox/Heparin/Coumadin) Score > or =5: Highest Risk (Intermittent/Pneumatic Compression Device AND Lovenox/Heparin/Coumadin) Assessment/Plan Assessment/Plan Problems: (1) Hyperlipidemia Status: Chronic ICD Code: E78.5 - Hyperlipidemia, unspecified SNOMED: 86730557 (2) CAD (coronary artery disease) Status: Chronic ICD Code: I25.10 - Atherosclerotic heart disease of [place] coronary artery without angina pectoris SNOMED: 06951419 (3) Unstable angina Status: Acute ICD Code: I20.0 - Unstable angina SNOMED: 2473748 Patient History: Cerebrovascular accident (CVA) G8 BROTHER (cva), , Age:52 Diabetes mellitus PATERNAL GRANDMOTHER, FH: [place] (myocardial infarction) 33 FATHER (CA), , Age:56 Hypertension 32 MOTHER ([facility]), , Age:63 No known health problems 19 CHILD 19 CHILD G8 BROTHER No Family History of: Alzheimer's disease Asthma Cerebrovascular disorder Chronic obstructive pulmonary disease Congestive heart failure Diabetes insipidus Parkinson's disease Plan 1. Unstable angina - S/p [facility] with PCI, no complications - CAD mgmt per primary attending Dr. Patel 2. HLD--cont statin 3. Other home meds as appropriate FC Likely dc tomorrow, defer to cards SARAH PERRY DO Jun 05, 2020 20:05
--- NOTE | 2020-06-05 20:20 | CCRH ---
DATE OF SERVICE: 06/05/2020 INDICATION FOR PROCEDURE: Unstable angina. HISTORY: This is a 54-year-old female who presented to the Emergency Department with symptoms of progressively worsening unstable angina. She describes exertional chest pain with radiation to the neck and back. Symptoms appear to be relieved with sublingual nitroglycerin. In view of these, she was set up for left heart catheterization to rule out obstructive CAD. Informed consents were obtained and the patient was taken to the cardiac catheterization suite. PROCEDURES PERFORMED: 1. Successful percutaneous coronary intervention to the right coronary artery in-stent restenotic lesion with Resolute [place] 2.5 x 26 mm drug-eluting stents. 2. Balloon angioplasty of the right coronary artery with a 2.0 x 12 mm compliant balloon. 3. Selective coronary angiography. 4. Left ventriculography. 5. Hemostasis established using a 6-Cymraes MynxGrip. PROCEDURE DETAILS: Access was obtained using a 4-Cymraes micropuncture kit to cannulate the right common femoral artery. The 4-Cymraes sheath was then upsized to a 6-Cymraes regular short sheath. Diagnostic angiography was carried out using the Elenita left catheter to engage the left main. The left main was noted to be angiographically normal. It bifurcates into left anterior descending artery and left circumflex artery. The left anterior descending artery has widely patent stents in the proximal to mid segment. The vessel tapers into a 1-1.5 mm vessel from the mid to distal segment running down the interventricular groove to the apex to form a type 2 LAD. The mid to distal section of the LAD is noted to be a small caliber vessel. It gives off 1 diagonal branch that appears to be pinched off at its ostial segment from prior stenting in the proximal to mid segment. The remaining portion of the diagonal branch appears to be with mild luminal irregularities. The left circumflex artery is noted to be nondominant and with mild luminal irregularities. It gives off 2 obtuse marginal branches that are noted to have mild luminal irregularities. Elenita left catheter was then exchanged for a Elenita right catheter, which was used to cross the aortic valve into the left ventricle. Left ventriculography was performed. LVEF was noted to be 65%. LVEDP was noted to be 9. Upon pullback of the catheter, there was no gradient across the aortic valve. Elenita right catheter was then used to engage the RCA. RCA angiography showed a focal 95% lesion in the mid RCA, which appears to be an in-stent restenotic lesion. The RCA is noted to be dominant bifurcating distally to an RPL and RPDA branch, both noted to have mild luminal irregularities. At this point, the patient had a run of ventricular tachycardia, which was successfully converted back to normal sinus rhythm with 1 defibrillator shock at 200 joules. I then elected to perform percutaneous coronary intervention to the RCA in-stent restenotic lesion. Using an AR1 guide, the RCA was successfully engaged. A Runthrough wire was then used to cross the lesion in the mid RCA. The lesion was then predilated using a 2.0 x 12 mm compliant balloon. Following predilation, a 2.5 x 26 mm Resolute [place] drug-eluting stent was then successfully deployed across the lesion in the mid RCA overlapping with the prior stent. The stent balloon was then used to perform post-dilatation of the overlapping stent segments. Post-angiography images shows stent that is well opposed to the wall of the vessel with 0% residual stenosis. The wire and the guide were subsequently removed and hemostasis was established using a 6-Cymraes MynxGrip. 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 There were no complications. IMPRESSION: 1. Severe stenosis (95%) of the mid right coronary artery in-stent restenotic lesion, status post percutaneous coronary intervention with a drug-eluting stent. 2. Balloon angioplasty of the mid right coronary artery. 3. Selective coronary angiography. 4. Left ventriculography. 5. Normal left ventricular ejection fraction. 6. Left ventricular end-diastolic pressure of 10. 7. Hemostasis established using a 6-Cymraes MynxGrip. RECOMMENDATIONS: The patient is to continue with dual antiplatelet therapy as well as statin therapy going forward. Lifestyle modification factors have been strongly advised. She has been instructed to follow up with me in the clinic upon discharge. No further workup is necessary at this time. MADHU BLAKE D.O. : SHREYA/jamila JOB# [id number]
[2020-06-05] MEDS: BRILINTA PO SCH (21:00)
[2020-06-05] MEDS ORDERED: NEURONTIN PO SCH (21:00)
[2020-06-05] MEDS ORDERED: LIPITOR PO SCH (21:00)
[2020-06-06 00:27] VITALS: BP 112/77
[2020-06-06 04:20] VITALS: BP 103/67
[2020-06-06 08:10] VITALS: BP 89/54
[2020-06-06] MEDS ORDERED: ASPIRIN EC PO SCH (09:00)
[2020-06-06] MEDS ORDERED: IMDUR PO SCH (09:00)
[2020-06-06] MEDS ORDERED: AMBIEN PO PRN (09:00)
[2020-06-06] MEDS ORDERED: XANAX PO PRN (09:00)
[2020-06-06] MEDS ORDERED: PROTONIX PO SCH (09:00)
[2020-06-06] MEDS: BRILINTA PO SCH (09:41)
[2020-06-06] MEDS ORDERED: TYLENOL PO PRN (11:00)
[2020-06-06] MEDS ORDERED: TOPROL XL PO SCH (11:30)
[2020-06-06 11:45] VITALS: BP 103/74
[2020-06-06] MEDS ORDERED: ATOR80TA PO (12:22)
--- NOTE | 2020-06-06 20:26 | PRM.DC ---
Discharge Summary Date of Discharge: Jun 06, 2020 Time of Request to Discharge: 11:10 Hospital Course This is a 54-year-old female who presented to the hospital with symptoms of progressively worsening unstable angina. She was set up for cardiac catheterization. Left heart catheterization revealed severe stenosis of the right coronary artery. She underwent successful percutaneous coronary intervention to the RCA with a resolute [place] 2.5 x 26 mm drug-eluting stent. She will be discharged home today in stable condition on dual antiplatelet therapy as well as statin therapy. She has been instructed to follow-up with me in the office in 2 weeks upon discharge. General: Alert, Oriented X3, Cooperative HEENT: Atraumatic, PERRLA, EOMI Neck: Supple, No JVD, No thyromegaly Lungs: Clear to auscultation, Normal air movement Heart: Regular rate, Normal S1, Normal S2 Abdomen: Normal bowel sounds, Soft, No tenderness Extremities: No clubbing, No cyanosis, No edema Neuro: Normal speech, Strength at 5/5 X4 ext Scheduled Aspirin (Aspir 81), 1 TAB PO DAILY, (Reported) Atorvastatin 80MG (Lipitor 80MG), 80 MG PO HS Escitalopram Oxalate (Escitalopram Oxalate), 1 TAB PO DAILY, (Reported) Gabapentin (Gabapentin), 2 CAP PO HS, (Reported) Isosorbide Mononitrate (Isosorbide Mononitrate Er), 1 TAB PO DAILY, (Reported) Metoprolol Succinate (Metoprolol Succinate), 50 MG PO ACL, (Reported) Pantoprazole Sodium (Pantoprazole Sodium), 1 TAB PO DAILY, (Reported) Ticagrelor (Brilinta), 90 MG PO BID Zolpidem Tartrate (Ambien Cr), 1 TAB PO HS, (Reported) Scheduled PRN Alprazolam (Alprazolam), 1 TAB PO BID PRN for ANXIETY, (Reported) Discontinued Medications Atorvastatin 40MG (Lipitor 40MG), 1 TAB PO HS Discontinued Reason: Discontinue Sepsis Evaluation @ Discharge 06/06/20 09:44 MADHU BLAKE DO Jun 06, 2020 20:26
== END 2020-06-06 13:45 | disposition home or self-care (01) | DRG 247 ==
LOC: ER 17:23 → EDBEDREQ 19:36 → CMPBEDREQ 19:43 → UNDOADMOB 20:18 → MS 20:18 → OBSVTOIN 20:18 → INTOOBSV 20:18
PROVIDERS: ADMIT Family Medicine; ATTEND Family Medicine
PROC: 027034Z Dilation of Coronary Artery, One Artery with Drug-eluting Intraluminal Device, Percutaneous Approach (ICD-10-PCS; 2020-06-05)
PROC: 4A023N7 Measurement of Cardiac Sampling and Pressure, Left Heart, Percutaneous Approach (ICD-10-PCS; 2020-06-05)
PROC: B2111ZZ Fluoroscopy of Multiple Coronary Arteries using Low Osmolar Contrast (ICD-10-PCS; 2020-06-05)
PROC: B2151ZZ Fluoroscopy of Left Heart using Low Osmolar Contrast (ICD-10-PCS; 2020-06-05)
PROC: 5A2204Z Restoration of Cardiac Rhythm, Single (ICD-10-PCS; principal; 2020-06-05 15:00)
DX: T82.855A Stenosis of coronary artery stent, initial encounter (principal); I25.110 Atherosclerotic heart disease of native coronary artery with unstable angina pectoris; I47.2 Ventricular tachycardia; I10 Essential (primary) hypertension; E78.5 Hyperlipidemia, unspecified; Y83.1 Surgical operation with implant of artificial internal device as the cause of abnormal reaction of the patient, or of later complication, without mention of misadventure at the time of the procedure; Z79.899 Other long term (current) drug therapy; Z90.49 Acquired absence of other specified parts of digestive tract; Z90.710 Acquired absence of both cervix and uterus; I25.2 Old myocardial infarction; Z82.49 Family history of ischemic heart disease and other diseases of the circulatory system; Z95.5 Presence of coronary angioplasty implant and graft; Z90.79 Acquired absence of other genital organ(s); Z90.722 Acquired absence of ovaries, bilateral; Z82.41 Family history of sudden cardiac death; Z82.3 Family history of stroke; Z83.3 Family history of diabetes mellitus; Z80.0 Family history of malignant neoplasm of digestive organs; Y92.89 Other specified places as the place of occurrence of the external cause
CPT/HCPCS: 36415; 71045; 80053; 82550; 82553; 83880; 84484; 85025; 85610; 85730; 93005; 93458; 99152; 99153; 99285; C1725; C1769; C1874; C1887; C1894; C9600; G0378; J1644; J2060; J2250; J2270; J3010; J3490; J7030; Q9967

== ENCOUNTER → 2020-06-12 | Outpatient (CLI) | payer BC ==
[~2020-06-12] MED LIST changes: +ATOR80TA PO; +ISOS30TA4 PO; +PANT40TA5 PO; -PANT40TA6 PO
== END | disposition home or self-care (01) ==
LOC: LAB 17:12
PROVIDERS: ATTEND Internal Medicine
DX: N39.0 Urinary tract infection, site not specified (principal)
CPT/HCPCS: 87077; 87086; 87186

== ENCOUNTER → 2020-10-07 | Outpatient (CLI) | payer BC ==
[~2020-10-07] MED LIST changes: -PANT40TA5 PO; +PANT40TA6 PO
== END | disposition home or self-care (01) ==
LOC: NPLAB 19:00
PROVIDERS: ATTEND Internal Medicine
DX: Z20.828 Contact with and (suspected) exposure to other viral communicable diseases (principal)
CPT/HCPCS: U0003

== ENCOUNTER → 2020-10-20 | Outpatient (CLI) | payer BC ==
[~2020-10-20] MED LIST changes: +LEXISCAN IV STA
--- NOTE | 2020-10-20 20:29 | STRESS ---
DATE OF SERVICE: 10/20/2020 INDICATION FOR PROCEDURE: Chest pain. Baseline EKG shows normal sinus rhythm. Stress EKG shows sinus tachycardia, unchanged from baseline. At the end of recovery, EKG shows normal sinus rhythm, unchanged from baseline. Baseline blood pressure is 136/77 and remained the same during stress. At recovery, the blood pressure is 153/99. Baseline heart rate is 78 beats per minute and randy to 132 beats per minute during stress. At the end of recovery, the heart rate was 96 beats per minute. Blood pressure and heart rate were appropriate for stress. There were no significant symptoms noted during stress. There were no arrhythmias noted during stress. EKG portion of stress test is negative for myocardial ischemia. Nuclear images was carried out with a resting dose of 9.85 mCi technetium 99 sestamibi and a stress dose of 34.4 mCi technetium 99 sestamibi. Nuclear images show homogeneous tracer distribution across all wall segments in both rest and stress images with no evidence of myocardial ischemia or infarction. Left ventricular ejection fraction is 82%. EDV is 25 mL, ESV is 4 mL. The left ventricle is normal in size. Gated motion images shows normal wall motion across all segments of the left ventricle. TID is 1.8. There is no evidence of diaphragmatic attenuation artifact. IMPRESSION: 1. Normal myocardial perfusion imaging with no evidence of myocardial ischemia or infarction. 2. Left ventricular ejection fraction of 82%. 3. This is a negative study. MADHU BLAKE D.O. DR: SHREYA/jamila JOB# [id number]
--- NOTE | 2020-10-20 21:07 | PCM.ECHO ---
APPROVED REPORT EXAM: Comprehensive 2D, Doppler, and color-flow Echocardiogram. Patient Location: OUT-PATIENT Rhythm: NSR Indications Chest Pain 2D Dimensions LVOT Diameter 2.02 (1.8-2.4cm) LVEF(%) 58.84 (>50%) M-Mode Dimensions RVDd 2.50 (2.1-3.2cm) Left Atrium(MM) 3.80 (2.5-4.0cm) IVSd 0.80 (0.7-1.1cm) Aortic Root 2.15 (2.2-3.7cm) LVDd 3.50 (4.0-5.6cm) Aortic Cusp Exc 1.40 (1.5-2.0cm) PWd 0.75 (0.7-1.1cm) MV EPSS 0.45 (<0.5cm) IVSs 1.35 cm FS (%) 43.65 % LVDs 1.95 (2.0-3.8cm) ESV(Teich) 12.58 ml PWs 1.25 cm LVEF(%) 75.86 (>50%) Volumes Biplane 2D LV Volumes Biplane 2D LA Volumes LVEDv A4C 56.37 mL LA ESV Index LVESv A4C 23.21 mL Aortic Valve AoV Peak Long. 1.15 m/s AoV VTI 22.05 cm AO Peak GR. 5.55 mmHg AO Mean GR. 2.95 mmHg LVOT VTI 17.01 cm LVOT Peak Long. 0.84 m/s PAT(VTI)/BSA 2.48 cm2/m2 PAT (VTI) 2.48 cm2 Mitral Valve MV E Velocity 0.90m/s MR Peak Gr. 16.05mmHg MV A Velocity 0.90m/s TDI Lateral E' P. V 0.14m/s Medial E' P. V 0.09m/s Pulmonary Valve PV Peak Velocity 0.75m/s PV Peak Grad. 2.25mmHg RVOT VTI 15.68cm Tricuspid Valve TR P. Velocity 2.20m/s RAP ESTIMATE 10.00mmHg TR Peak Gr. 19.53mmHg RVSP 29.53mmHg LEFT VENTRICLE The left ventricle is normal size. The left ventricular systolic function is normal. The left ventricular ejection fraction is within the normal range. There is normal left ventricular wall thickness. There is normal LV segmental wall motion. There is no ventricular septal defect visualized. No left ventricle thrombus noted on this study. LVEF is 60-65%. RIGHT VENTRICLE The right ventricle is normal size. The right ventricular systolic function is normal. There is normal right ventricular wall thickness. ATRIA The left atrium size is normal. The right atrium size is normal. The interatrial septum is intact with no evidence for an atrial septal defect. AORTIC VALVE The aortic valve is normal in structure. There is no aortic valvular stenosis. No aortic regurgitation is present. There is no aortic valvular vegetation. MITRAL VALVE The mitral valve is normal in structure. There is no mitral valve stenosis. Mild mitral regurgitation. There is no evidence of mitral valve vegetations. TRICUSPID VALVE The tricuspid valve is normal in structure. There is no tricuspid valve stenosis. Mild to moderate tricuspid regurgitation. There is no tricuspid valve vegetations. PULMONIC VALVE The pulmonary valve is normal in structure. There is no pulmonic valvular stenosis. There is no pulmonic valvular regurgitation. GREAT VESSELS Aortic root is mildly dilated. The pulmonary artery is normal. Aortic arch is not well visualized. IVC is not well visualized. PERICARDIUM There is no pericardial effusion. There is no pleural effusion. Other Information Study Quality: Fair <Conclusion> The left ventricular systolic function is normal. LVEF is 60-65%. Mild mitral regurgitation. Mild to moderate tricuspid regurgitation. Electronically signed by : MADHU BLAKE. 10/20/2020 21:07:28
== END | disposition home or self-care (01) ==
LOC: RAD 09:10
PROVIDERS: ATTEND Internal Medicine Interventional Cardiology
DX: I08.1 Rheumatic disorders of both mitral and tricuspid valves (principal); R00.0 Tachycardia, unspecified; I25.110 Atherosclerotic heart disease of native coronary artery with unstable angina pectoris; I25.2 Old myocardial infarction; R42 Dizziness and giddiness; R07.9 Chest pain, unspecified; Q25.49 Other congenital malformations of aorta
CPT/HCPCS: 78452; 93017; 93306; A9500; J2785

== ENCOUNTER 2020-11-09 21:16 | Emergency (ER) | payer BC ==
[~2020-11-09] VITALS: Ht 149.9 cm; Wt 58.5 kg
[2020-11-09 21:16] VITALS: BP 134/90
[~2020-11-09 21:16] MED LIST changes: -ESCI20TA PO; +ESCI20TA5 PO; -LEXISCAN IV STA
--- NOTE | 2020-11-09 21:16 | NUR ---
ARRIVAL PT BROUGHT TO ED ROOM 2 VIA [facility], COMPLAINING OF LEFT SIDED CHEST PRESSURE AND HEAVINESS. PT CURRENTLY SCALES PAIN 3/10. PT TOOK NTG 0.4 AT HOME, AND RECEIVED 0.4 NTG ON THE EMS. PER PT, PAIN OCCURRED WHILE LAYING ON THE COUCH. PT REPORTS PMH OF ANXIETY, TOOK 1MG OF XANAX OFFAL SEPARATOR. LAST DOSE OF ASPIRIN WAS LAST NIGHT. PMH OF HIGH CHOLESTEROL, NSTEMI, HEART DISEASE, AND 7-8 CARDIAC STENTS. PT IN NAD WITH RR EVEN AND UNLABORED.
--- NOTE | 2020-11-09 21:18 | NUR ---
EKG RT AT BEDSIDE FOR EKG AT THIS TIME
--- NOTE | 2020-11-09 21:25 | NUR ---
CXR MACHINE TURNER AT BEDSIDE FOR CXR
[2020-11-09] MEDS ORDERED: ASPIRIN PO STA (21:28)
[2020-11-09] MEDS ORDERED: NITROSTAT SL STA (21:28)
[2020-11-09 21:30] LABS: BASOPHIL % 0.2 % (0.0-0.2); EOSINOPHIL # 0.1 10^3/uL (0.0-0.2); EOSINOPHIL % 0.7 % (0.0-5.0); LYMPHOCYTES % 53.5 % (24.0-44.0); MONOCYTES # 0.6 10^3/uL (0.3-0.8); MONOCYTES % 6.9 % (5.0-12.0); NEUTROPHIL # 3.4 10^3/uL (1.8-7.7); NEUTROPHILS % 38.7 % (41.0-85.0); PLATELET COUNT 277 10^3/uL (150-400); RED CELL DISTRIBUTION WIDTH 12.4 % (11.5-14.5)
[2020-11-09] MEDS ORDERED: ASPIRIN ONE (21:32)
[2020-11-09 21:35] VITALS: BP 104/68
--- NOTE | 2020-11-09 21:42 | DIREP ---
PROCEDURE:CHEST 1 VIEW COMPARISON:[facility], CR, XRAY CHEST SINGLE VW, 06/04/2020, 05:57 PM. INDICATIONS:chest pain FINDINGS: LUNGS/PLEURA:No significant pulmonary parenchymal abnormalities. No effusions. VASCULATURE:Normal. Unremarkable pulmonary vasculature. CARDIAC:Normal. No cardiac silhouette abnormality or cardiomegaly. MEDIASTINUM:Normal. No visible mass or adenopathy. BONES:Normal. No fracture or visible bony lesion. OTHER:EKG leads overlie the chest. CONCLUSION:Normal examination. Dictated by: Damien Canales III, MD on 11/09/2020 at 09:40 PM
[2020-11-09 21:53] LABS: ALANINE AMINOTRANSFERASE(ML) 27 U/L (12-78); ALKALINE PHOSPHATASE 79 U/L (50-136); ASPARTATE AMINO TRANSFERASE 16 U/L (0-35); CALCIUM 9.2 mg/dL (8.4-10.5); CARBON DIOXIDE 24.6 mmol/L (20.0-32); GLUCOSE 184 mg/dL (70-110)
--- NOTE | 2020-11-09 21:58 | ER.PDOC ---
General Chief Complaint: Chest Pain-Cardiac Nature Stated Complaint: CHEST PAIN Time seen by MD: 21:15 Source: patient, EMS Exam Limitations: no limitations History of Present Illness Initial Comments Pt indicates she has had vague CP off and on for past week or more. None of them concerned her until today. She had heaviness across the chest in the mid s ternal level. She had an episode of SOB that she thought was an anxiety attack and she to her Benzo for it. She had taken a single NTG about 2000hrs. She did report it helped where the pain went down to about half of what it was. After the panic attack, she did call EMS and they also did receive a second NTG that also decreased her pain another "half". She still c/o a heaviness of about 3/10. Another NTG here and it to brought her "pain" down to "just a vague sensation". At no point after calling EMS or here has she had SOB. At no point did she get sweaty or nausea with these symptoms. Severity/Quality: moderate Radiation: no radiation Activities at Onset: emotional stress, rest Prior CP/Workup: Cardiac Cath, Heart Attack, Other (cath done on 06/05/20 and had a stent placed in her RCA. This was in a new stenosis inside another stent.) Aspirin Today: No Aspirin Today Associated Symptoms: denies symptoms Prior symptoms/Treatment: Similar symptoms previous Allergies: Coded Allergies: No Known Allergies (Unverified , 03/12/20) Home Meds Active Scripts Atorvastatin 80MG (LIPITOR 80MG) 80 Mg Tablet, 80 MG PO HS, #30 TAB 3 Refills Prov:MADHU PATEL DO 06/06/20 Ticagrelor (BRILINTA) 90 Mg Tablet, 90 MG PO BID for 365 Days, #180 TABLET 12 Refills Prov:SHAYY GONZALEZ MD 04/26/18 Reported Medications Isosorbide Mononitrate (ISOSORBIDE MONONITRATE ER) 30 Mg Tab.er.24h, 1 TAB PO DAILY, #30 TAB 5 Refills 06/04/20 Zolpidem Tartrate (AMBIEN CR) 12.5 Mg Tab.mphase, 1 TAB PO HS, #30 TAB 1 Refill 12/10/19 Gabapentin (GABAPENTIN) 100 Mg Capsule, 2 CAP PO HS, #90 CAP 2 Refills 2/10/20 Escitalopram Oxalate (ESCITALOPRAM OXALATE) 20 Mg Tablet, 1 TAB PO DAILY, #30 TAB 5 Refills 12/10/19 Alprazolam (ALPRAZOLAM) 1 Mg Tablet, 1 TAB PO BID PRN for ANXIETY, #60 TAB 12/10/19 Metoprolol Succinate (METOPROLOL SUCCINATE) 50 Mg Tab.er.24h, 50 MG PO ACL 12/29/16 Aspirin (ASPIR 81) 81 Mg Tablet.dr, 1 TAB PO DAILY, #30 TAB 5 Refills 11/18/16 Pantoprazole Sodium (PANTOPRAZOLE SODIUM) 40 Mg Tablet.dr, 1 TAB PO DAILY, #30 TAB 3 Refills 11/18/16 Past Medical History Medical History: angina, coronary artery disease, heart attack, other Surgical History: cardiac cath Family History Significant Family History: no pertinent family hx Social History Smoking: non-smoker Alcohol Use: none Drug Use: none Cardiovascular: see HPI Physical Exam General Appearance: No Apparent Distress, WD/WN HEENT: PERRL/EOMI, Normal ENT Inspection, TMs Normal, Pharynx Normal Neck: Non-Tender, Full Range of Motion, Supple, Normal Inspection Respiratory: chest non-tender, lungs clear, normal breath sounds, no respiratory distress, no accessory muscle use Cardiovascular: Normal Peripheral Pulses, Regular Rate, Rhythm, No Edema, No Gallop, No JVD, No Murmur Gastrointestinal: Normal Bowel Sounds, No Organomegaly, No Pulsatile Mass, Non Tender, Soft Extremities: Normal Range of Motion, Non-Tender, Normal Inspection, No Pedal Edema, No Calf Tenderness, Normal Capillary Refill 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 (11/09/20 21:18) Helicobacter Pylori (11/09/20 21:18) Xr Chest 1v (11/09/20 21:18) Ekg-Routine (11/09/20 21:18) Nitroglycerin (Nitrostat) (11/09/20 21:28) Aspirin (Aspirin) (11/09/20 21:28) Aspirin (Aspirin) (11/09/20 21:32) Vital Signs Date Time Temp Pulse Resp B/P (MAP) Pulse Ox O2 Delivery O2 Flow Rate FiO2 11/09/20 21:16 98.8 85 20 98 Administered Medications Medications (Trade) Dose Ordered Sig/Asiya Route PRN Reason Start Time Stop Time Status Last Admin Dose Admin Nitroglycerin (Nitrostat) 0.4 mg STAT STAT SL 11/09/20 21:28 11/09/20 21:30 DC 11/09/20 21:25 0.4 MG Laboratory Tests Test 11/09/20 21:20 White Blood Count 8.8 10^3/uL (4.5-11.0) Red Blood Count 3.87 10^6/uL (4.00-5.20) L Hemoglobin 12.4 g/dL (12.0-15.0) Hematocrit 36.3 % (36.0-46.0) Mean Corpuscular Volume 93.8 fL (78-100) Mean Corpuscular Hemoglobin 32.0 pg (26-34) Mean Corpuscular Hemoglobin Concent 34.2 g/dL (33-36.5) Red Cell Distribution Width 12.4 % (11.5-14.5) Platelet Count 277 10^3/uL (150-400) Mean Platelet Volume 9.7 fL (7.8-11.0) Neutrophils (%) (Auto) 38.7 % (41.0-85.0) L Lymphocytes (%) (Auto) 53.5 % (24.0-44.0) H Monocytes (%) (Auto) 6.9 % (5.0-12.0) Neutrophils # (Auto) 3.4 10^3/uL (1.8-7.7) Lymphocytes # (Auto) 4.70 10^3/uL1 (1.0-4.8) Monocytes # (Auto) 0.6 10^3/uL (0.3-0.8) Absolute Immature Granulocyte (auto 0 10^3 u/L (0-2) Absolute Eosinophils (auto) 0.1 10^3/uL (0.0-0.2) Immature Granulocytes % 0.00 % (0.00-0.50) Eosinophils % 0.7 % (0.0-5.0) Basophils % 0.2 % (0.0-0.2) Basophils # 0.0 10^3/uL (0.0-0.1) Prothrombin Time 10.0 SEC (9.3-11.3) Prothrombin Time INR (Non-Therap) 1.0 Activated Partial Thromboplast Time 23.0 SEC (24.67-30.72) Helicobacter pylori Screen NEGATIVE (NEGATIVE) Progress Progress Labs are all good except her BS is elevated at 156. We discussed this and she will follow up with Dr. Patel. She will call him in the morning. 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 She is instructed to discuss her BS and dietary changes or meds. Duration or Time Spent with Pa: 25m Problem Qualifiers ALPHONSO SCOTT MD Nov 09, 2020 21:58
[2020-11-09 22:35] VITALS: BP 104/68
--- NOTE | 2020-11-10 04:15 | PCM.EKG ---
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 Reading MD: Measurements Intervals Amanda Rate: 83 P: 46 [place]: 173 QRS: 76 QRSD: 95 T: 42 QT: 374 QTc: 440 Interpretive Statements Sinus rhythm No previous ECG available for comparison Please click the below link to view image of tracing.
== END 2020-11-09 22:35 | disposition home or self-care (01) ==
LOC: ER 21:16
DX: R07.2 Precordial pain (principal); F41.9 Anxiety disorder, unspecified; I25.10 Atherosclerotic heart disease of native coronary artery without angina pectoris; Z79.82 Long term (current) use of aspirin; Z79.899 Other long term (current) drug therapy
CPT/HCPCS: 36415; 71045; 80053; 82550; 82553; 83880; 84484; 85025; 85610; 85730; 86677; 93005; 99285

== ENCOUNTER 2020-12-11 07:20 | Day surgery (SDC) | payer OTHER ==
[2020-12-04 13:51] LABS: BASOPHIL % 0.3 % (0.0-0.2); EOSINOPHIL # 0.1 10^3/uL (0.0-0.2); EOSINOPHIL % 0.8 % (0.0-5.0); LYMPHOCYTES # 2.98 10^3/uL1 (1.0-4.8); LYMPHOCYTES % 37.8 % (24.0-44.0); MEAN CORP HGB 31.4 pg (26-34); MONOCYTES # 0.6 10^3/uL (0.3-0.8); NEUTROPHIL # 4.2 10^3/uL (1.8-7.7); NEUTROPHILS % 52.8 % (41.0-85.0); PLATELET COUNT 309 10^3/uL (150-400); RED CELL DISTRIBUTION WIDTH 12.5 % (11.5-14.5)
--- NOTE | 2020-12-04 13:58 | PCM.EKG ---
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
[2020-12-04 14:10] LABS: CALCIUM 9.1 mg/dL (8.4-10.5); CARBON DIOXIDE 27.8 mmol/L (20.0-32)
[2020-12-11] VITALS (10 sets, daily range): BP systolic 99–126; BP diastolic 57–85
[~2020-12-11] VITALS: Ht 152.4 cm; Wt 59.0 kg
[~2020-12-11 07:20] MED LIST changes: +ASCO1TAB PO; -ESCI20TA5 PO; +ESCI20TA8 PO; -ISOS30TA4 PO; +ISOS30TA73 PO; +MULT-419 PO; +NS 1000ML 1,000 ML IV SCH; +NS 1000ML 1,000 ML ONE; +SUBLIMAZE ONE; +VERSED ONE; +XYLOCAINE ONE
[2020-12-11] MEDS ORDERED: VERSED ONE (09:50)
[2020-12-11] MEDS ORDERED: SUBLIMAZE ONE (09:50)
[2020-12-11] MEDS ORDERED: ATIVAN ONE (09:51)
--- NOTE | 2020-12-11 18:58 | [facility] ---
DATE OF SERVICE: 12/11/2020 INDICATION FOR PROCEDURE: Abnormal cardiac stress test. HISTORY: This is a 55-year-old female who was seen in the outpatient setting with symptoms of chest discomfort. She admits to progressively worsening chest pain suspicious for an angina equivalent. She was set up for cardiac catheterization to rule out obstructive CAD. Informed consents were obtained and the patient was taken to the cardiac catheterization suite. PROCEDURES PERFORMED: 1. Selective coronary angiography. 2. Left ventriculography. 3. Hemostasis established using a 6-Zambian MynxGrip. PROCEDURE: Access was obtained using a 4-Zambian micropuncture kit to cannulate the right common femoral artery. The 4-Zambian sheath was then upsized to a 6-Zambian regular short sheath. Diagnostic angiography was carried out using the Elenita left catheter to engage the left main. The left main was noted to be angiographically normal. It bifurcates into left anterior descending artery and a left circumflex artery. The LAD is noted to have widely patent stent in the [id number] segment. The LAD tapers into a 1 mm vessel from the mid to the distal segment with the distal segment 0.5 mm vessel. It runs in the interventricular groove to the apex to form a type 2 LAD. It gives off one medium-sized diagonal branch, which appears to be pinched off from the ostial segment. The diagonal appears to be pinched off by prior stents in the proximal to mid LAD. The left circumflex artery is noted to be nondominant and with mild luminal irregularities. It gives off two obtuse marginal branches that are noted to have mild luminal irregularities. The Elenita left catheter was then exchanged for a Elenita right catheter, which was used to cross the aortic valve into the left ventricle. Left ventriculography was performed. LVEF was noted to be 60%. LVEDP was noted to be 11. Upon pullback of the Elenita right catheter, there was no gradient across the aortic valve. Elenita right catheter was then used to engage the RCA. RCA angiography showed a dominant RCA with a 20% in-stent re-stenosis in the midportion. The RCA bifurcates distally to an RPL and RPDA branch, both noted to have mild luminal irregularities. Elenita right catheter was then taken out and hemostasis was established using a 6-Z[place] MynxGrip. 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 There were no complications. IMPRESSION: 1. Nonobstructive coronary artery disease. 2. Selective coronary angiography. 3. Left ventriculography. 4. LVEF of 60%. 5. LVEDP of 11. 6. Hemostasis established using a 6-[place] MynxGrip. RECOMMENDATIONS: No coronary intervention is necessary at this time. Lifestyle modification factors have been strongly advised. She will be discharged home today to follow up with me in the office in 2-3 weeks. MADHU BLAKE D.O. DR: SHREYA/jamila JOB# [id number]
== END 2020-12-11 12:36 | disposition home or self-care (01) ==
LOC: CCL 07:20
PROVIDERS: ATTEND Internal Medicine Interventional Cardiology
DX: I25.110 Atherosclerotic heart disease of native coronary artery with unstable angina pectoris (principal); I11.9 Hypertensive heart disease without heart failure; G47.33 Obstructive sleep apnea (adult) (pediatric); F41.9 Anxiety disorder, unspecified; I25.2 Old myocardial infarction; E78.2 Mixed hyperlipidemia; I70.213 Atherosclerosis of native arteries of extremities with intermittent claudication, bilateral legs; Z95.5 Presence of coronary angioplasty implant and graft; Z98.890 Other specified postprocedural states; Z90.722 Acquired absence of ovaries, bilateral; Z90.710 Acquired absence of both cervix and uterus; Z87.891 Personal history of nicotine dependence; Z79.899 Other long term (current) drug therapy
CPT/HCPCS: 36415; 80053; 85025; 85610; 85730; 93005; 93458; 99152; C1760; C1769; C1894 ×2; J1644; J2060; J2250 ×2; J3010 ×2; J7030; Q9967

== ENCOUNTER 2021-02-04 07:00 | Day surgery (SDC) | payer OTHER ==
[2021-01-30 09:10] VITALS: BP 122/79
[2021-01-30 09:29] LABS: BASOPHIL % 0.1 % (0.0-0.2); EOSINOPHIL # 0.1 10^3/uL (0.0-0.2); LYMPHOCYTES # 3.34 10^3/uL1 (1.0-4.8); LYMPHOCYTES % 40.9 % (24.0-44.0); MEAN CORP HGB 32.3 pg (26-34); MONOCYTES # 0.8 10^3/uL (0.3-0.8); MONOCYTES % 9.3 % (5.0-12.0); NEUTROPHILS % 48.3 % (41.0-85.0); PLATELET COUNT 296 10^3/uL (150-400); RED CELL DISTRIBUTION WIDTH 13.2 % (11.5-14.5)
[2021-01-30 09:42] LABS: CARBON DIOXIDE 27.7 mmol/L (20.0-32)
[~2021-02-04] VITALS: Ht 152.4 cm; Wt 59.0 kg
[~2021-02-04 07:00] MED LIST changes: +ALPR2TAB5 PO; +LACTATED RINGERS 1,000 ML IV SCH; +LACTATED RINGERS 1,000 ML ONE; -NS 1000ML 1,000 ML IV SCH; -NS 1000ML 1,000 ML ONE; -SUBLIMAZE ONE; -VERSED ONE; -XYLOCAINE ONE
[2021-02-04] MEDS ORDERED: WATER ONE (07:20)
[2021-02-04 08:31] VITALS: BP 112/71
[2021-02-04] MEDS ORDERED: SUBLIMAZE ONE (12:12)
[2021-02-04] MEDS ORDERED: DIPRIVAN IV ONE (12:12)
[2021-02-04] MEDS ORDERED: LIDOCAINE 2% VIAL ONE (12:13)
[2021-02-04 12:35] VITALS: BP 104/64
--- NOTE | 2021-02-04 16:47 | PRM.OPH ---
Immediate Post Op Report Immediate Post Op Report Imediate Post Op Report Preop diagnosis 1. GERD 2. Chest pain believed secondary to be from GERD Postoperative diagnose 1. GERD 2. Chest pain believed to be secondary to GERD 3. Sliding hiatal hernia 4. Gastritis Procedure 1. EGD with cold biopsies of the stomach antrum and esophagus Surgeon Dr. Rivera Anesthesia Monitored anesthesia Estimated blood loss Minimal Findings 1. Hiatal hernia 2. Gastritis Specimen Gastric antrum and lower esophagus Complications None JOSHUA RIVERA MD Feb 04, 2021 16:47
--- NOTE | 2021-02-04 16:54 | PRM.OPH ---
OPERATIVE REPORT OPERATIVE REPORT Procedure The patient was initially seen and identified in the preoperative area. After confirming her identity, H&P, consents, and making sure that all her questions were answered the patient was transferred from the preop area to the operating theater. Patient was hooked up to appropriate monitoring, a bite block placed, placed in the left lateral decubitus position, and given monitored anesthesia. Once the patient was appropriately sedated scope was inserted into the oral cavity down into the pharynx the esophagus was identified and under direct visualization the esophagus was entered and as we proceeded down the esophagus under direct visualization we stopped took a picture of what appears to be a sliding hiatal hernia with what the GE junction at approximately 30 cm. The scope was then advanced under direct visualization into the stomach with slight insufflation of the stomach and into the pylorus and into the first second and third portions of the duodenum. The duodenum appeared to be normal and pictures were taken. The duodenum was deinsufflated the scope was withdrawn back into the antrum. The antrum appeared to have some signs of gastritis and biopsies of the antrum were taken. We made sure there is no signs of any active or ongoing bleeding before proceeding with the procedure. The rest the stomach was examined in the no other abnormalities were noted. Scope was placed into retroflexion view of the examination of the Hill valve appeared to be normal and was graded as a Hill valve grade 1. Scope was then taken out of retroflexion view. The scope was withdrawn back into the esophagus to the ZE line which at this point was now approximately 35 to 36 cm from the incisors. There did appear to be some of gastric mucosa sticking up into the esophagus these were then biopsied to make sure that that this was not a result of esophageal changes due to reflux. After these biopsies were completed we made sure there is no signs of any active or ongoing bleeding. The scope was then reinserted back into the stomach we reexamined our biopsy sites which were not bleeding. The stomach was deinsufflated and the esophagus was examined as we continue to slowly withdraw examining the esophagus on the way out. Pictures were taken on the withdraw on the examination of the esophagus. Once completing the examination of the esophagus the scope was withdrawn into the pharynx and oral cavity the scope was then withdrawn from the patient ending the procedure. The patient was handed back over to anesthesia to be awoken from monitored anesthesia and transferred to the PACU for further recovery. The patient tolerated the procedure well. JOSHUA YAN MD Feb 04, 2021 16:54
== END 2021-02-04 13:45 | disposition home or self-care (01) ==
LOC: SDC 07:00
PROVIDERS: ATTEND Surgery
DX: K21.9 Gastro-esophageal reflux disease without esophagitis (principal); K44.9 Diaphragmatic hernia without obstruction or gangrene; K29.50 Unspecified chronic gastritis without bleeding; I10 Essential (primary) hypertension; I25.2 Old myocardial infarction; E78.2 Mixed hyperlipidemia; G47.33 Obstructive sleep apnea (adult) (pediatric); E11.9 Type 2 diabetes mellitus without complications; F41.9 Anxiety disorder, unspecified; I25.110 Atherosclerotic heart disease of native coronary artery with unstable angina pectoris; F32.9 Major depressive disorder, single episode, unspecified; Z79.01 Long term (current) use of anticoagulants; Z87.891 Personal history of nicotine dependence; Z90.49 Acquired absence of other specified parts of digestive tract; Z98.890 Other specified postprocedural states; Z95.5 Presence of coronary angioplasty implant and graft; Z90.710 Acquired absence of both cervix and uterus; Z90.722 Acquired absence of ovaries, bilateral; Z80.0 Family history of malignant neoplasm of digestive organs; Z82.49 Family history of ischemic heart disease and other diseases of the circulatory system; Z79.899 Other long term (current) drug therapy; Z79.82 Long term (current) use of aspirin
CPT/HCPCS: 36415; 43239; 80053; 85025; 85610; 85730; 88305; J2001; J3010; J3490; J7120

== ENCOUNTER → 2021-05-15 | Outpatient (CLI) | payer OTHER ==
[~2021-05-15] MED LIST changes: -LACTATED RINGERS 1,000 ML IV SCH; -LACTATED RINGERS 1,000 ML ONE
== END | disposition home or self-care (01) ==
LOC: LAB 13:35
PROVIDERS: ATTEND Internal Medicine
DX: E78.5 Hyperlipidemia, unspecified (principal)
CPT/HCPCS: 36415; 80061